=== PATIENT | female | born 1980 | race American Indian/Alaskan Native ===

== ENCOUNTER 2016-10-22 09:35 | Day surgery (SDC) | payer BC ==
[2016-10-18 12:19] VITALS: BMI 28.7
[~2016-10-22 09:35] MED LIST: Simethicone 40 mg/0.6 ml Liquid (30 ml) ONE
[2016-10-22] MEDS ORDERED: Lactated Ringer's 1,000 ML IV ONE ×3 (11:12→13:46)
[2016-10-22] MEDS ORDERED: ceFAZolin IV 2 gm in Dextrose 1 GM/50 ML BAG IVPB ONE (11:13)
[2016-10-22] MEDS ORDERED: Propofol 10 mg/ml Inj (20 ML) ONE (11:15)
[2016-10-22] MEDS ORDERED: Midazolam 2 MG/2 ML VIAL ONE (11:15)
[2016-10-22] MEDS ORDERED: Bupivacaine HCl 0.25% PF (10 ml) Inj ONE (11:45)
[2016-10-22] MEDS ORDERED: HYDROmorphone 0.5 mg/0.5 ml ISec IVP PRN (12:36)
--- NOTE | 2016-10-22 12:37 | PCM.SURG1 ---
Surgeon's Initial Post Op Note - Surgeon's Notes Surgeon: Mei Grady MD Optical Instrument Assembler: Lakeisha Gottlieb MD Type of Anesthesia: General Endo Pre-Operative Diagnosis: Multiparity desires permanet bilaterl tubal sterilization Operative Findings: anterverted utuers, anterior abdominla ahdesions, omental anterior adhesions , normal tubesl and ovaries bilaterally. urine output 200cc. Dr Bull Suazo was technical support assistant and was present for entrie case and essential in gaining entry, exposure, holding camera, removing specimen, insufllating/ desufflating abodmen, lysing adhesions, closure, and obtaining hemostasis. Post-Operative Diagnosis: same as above, pelvic adhesions Operation Performed: Operative Laparascopy, laparascopic bilateral salpingecotmy , lysis of adhesions Specimen/Specimens Removed: right and left and fallopian tube Estimated Blood Loss: EBL {In ML}: 5 Blood Products Given: N/A Drains Used: No Drains Post-Op Condition: Good Date of Surgery/Procedure: 10/22/16 Time of Surgery/Procedure: 11:30
[2016-10-22 14:53] VITALS: BP 114/74; PULSE 86; RESP 15; TEMP 98.5; O2SAT 100
--- NOTE | 2016-10-29 19:18 | OP ---
PROCEDURE DATE: 10/22/2016 PREOPERATIVE DIAGNOSIS: Multipara desired permanent bilateral tubal sterilization. POSTOPERATIVE DIAGNOSES: 1. Multipara desired permanent bilateral tubal sterilization. 2. Pelvic adhesions. PROCEDURE: Operative laparoscopy, laparoscopic bilateral salpingectomy, and lysis of adhesions. SURGEON: Mei Grady MD STATISTICAL DEVELOPER: Dr. Bull Suazo, the operating room surgical technician, was present for the entire case and assisted with getting entry, retraction, exposure, holding the camera, removing the specimen and insufflating and disaffiliating the abdomen, lysing the adhesions and closure and obtaining hemostasis. TYPE OF ANESTHESIA: General endotracheal. OPERATIVE FINDINGS: Anteverted uterus, anterior abdominal adhesions, omental anterior adhesions, normal tubes and ovaries bilaterally. ESTIMATED BLOOD LOSS: 5 mL BLOOD PRODUCTS: None. URINE OUTPUT: 200 mL COMPLICATIONS: None. SPECIMEN: Removed right and left fallopian tube. DESCRIPTION OF PROCEDURE: The patient was taken to the operating room where she was given general anesthesia, and once she was found to be adequate, she was placed on the operating table in dorsal lithotomy position with the legs supported using stirrups. The patient was then prepped and draped in the usual sterile fashion and time-out would confirm correct patient and correct procedure. The speculum was placed into the vagina and the cervix was grasped with a single-toothed tenaculum and an uterine manipulator was inserted inside the uterus. This area was then draped off the operative field. The surgeon then re-gloved and a 5-mm infraumbilical skin incision was made after injecting 0.25% Marcaine 2 mL. A Veress needle was inserted into the skin to confirm an opening pressure of 2 mmHg. Approximately, 5 L of CO2 gas was insufflated into the abdominal cavity after confirmation of placement of the Veress. The Veress needle was then removed. A 5-mm port with laparoscope was then inserted under direct visualization. A second port was then inserted in the right lower quadrant under direct visualization after administering 0.25% Marcaine 2 mL. This is was done under direct visualization, and in similar fashion, a 5-mm trocar was inserted in the left lower quadrant after local anesthetic was given. The pelvic cavity was examined with above findings as noted. The anterior omental adhesions were carefully lysed using a LigaSure device in a clear space. This allowed for visualization. Following lysis of all omental adhesions, the bowels were then retracted and the patient was placed in Trendelenburg position. There was a normal uterus, tubes and ovaries identified bilaterally. The fallopian tube was then grasped and elevated with the [place] clamp and the LigaSure device was then used along the mesosalpinx to carefully dissect, cauterize and removed the fallopian tube on either side up to the close proximity of the cornua. The specimen was then removed through each port on both the right and left side and there was good hemostasis noted on the operative site including the lysis of adhesions. The pelvis was then irrigated and there was good hemostasis noted at all sites. Each port was then removed under visualization and there was good hemostasis noted. The abdomen was disaffiliated and the laparoscope and the sheath were removed. The skin edges were reapproximated and closed with 4-0 Monocryl suture in a running subcuticular fashion. All instrument removed including the vaginal speculum and HUMI manipulator. At the end of the procedure, all needle, sponge and instrument counts were noted and correct x2. The patient tolerated the procedure well and was transferred to the recovery room in stable condition. Mei Grady MD
== END 2016-10-22 14:49 | disposition home or self-care (01) ==
LOC: C.SDS 09:35
PROVIDERS: ATTEND Obstetrics & Gynecology
DX: Z30.2 Encounter for sterilization (principal); Z64.1 Problems related to multiparity; N73.6 Female pelvic peritoneal adhesions (postinfective); J45.909 Unspecified asthma, uncomplicated; Z79.899 Other long term (current) drug therapy